=== PATIENT | male | born 1970 | race Hispanic/Latino ===

== ENCOUNTER 2018-04-28 16:47 | Observation (INO) | payer OTHER ==
--- OUTSIDE RECORDS SUMMARY | 2018-04-28 17:24 | XMS REPORT | Clinical Summary ---
:1970 Author Organization [facility] Address [address] [place] [address] Care Team Providers Name Role Phone Asked, No Pcp Primary Care Provider Unavailable Allergies No Known Allergies Current Medications Prescription Sig. Disp. Refills Start Date End Date Status topiramate TAKE 1 TABLET 270 tablet 1 02/25/2018 Active (TOPAMAX) 100 MG BY MOUTH tablet EVERY MORNING AND TAKE 2 TABLETS BY MOUTH EVERY NIGHT AT BEDTIME topiramate Take 3 270 tablet 1 04/12/2017 06/23/2017 Discontinued (TOPAMAX) 100 MG tablets (300 tablet mg total) by mouth daily for 180 days. 100 mg po qam and 200 mg po qhs. topiramate Take 3 270 tablet 0 06/25/2017 09/11/2017 Discontinued (TOPAMAX) 100 MG tablets (300 tablet mg total) by mouth daily for 90 days. 100 mg po qam and 200 mg po qhs topiramate Take 3 270 tablet 0 09/11/2017 02/23/2018 Discontinued (TOPAMAX) 100 MG tablets (300 tablet mg total) by mouth daily for 90 days. 100 mg po qam and 200 mg po qhs Active Problems Not on file Encounters Date Type Specialty Care Team Description 02/23/2018 Refill Neurology Ilya Ramon MD 09/11/2017 Office Visit Neurology Ilya Ramon MD Convulsions, unspecified convulsion type (Primary Dx) 06/23/2017 Refill Neurology Ilya Ramon MD after 04/27/2017 Family History Medical History Relation Name Comments Diabetes Father No Known Problems Mother Relation Name Status Comments Father Mother Social History Tobacco Use Types Packs/Day Years Used Date Never Smoker Smokeless Tobacco: Never Used Alcohol Use Drinks/Week oz/Week Comments No Sex Assigned at Date Recorded Not on file Last Filed Vital Signs Vital Sign Reading Time Taken Blood Pressure 142/74 09/11/2017 3:44 PM CDT Pulse 76 09/11/2017 3:44 PM CDT Temperature - - Respiratory Rate - - Oxygen Saturation - - Inhaled Oxygen Concentration - - Weight 121 kg (267 lb 4.8 oz) 09/11/2017 3:44 PM CDT Height 177.8 cm (5' 10") 09/11/2017 3:44 PM CDT Body Mass Index 38.35 09/11/2017 3:44 PM CDT Plan of Treatment Date Type Specialty Care Team Description 09/11/2018 Office Visit Neurology Ilya Ramon MD [address] [facility] [address] [place] [address] Health Maintenance Due Date Last Done Comments INFLUENZA VACCINE 01/22/2018 Results Not on fileafter 04/27/2017 Insurance Payer Benefit Plan / Group Subscriber ID Type Phone Address BCBS BCBS CHOICE PPO/FEDERAL EMPL PPO xxxxxxxxxxxx PPO Home: [place] [facility] [phone] [place] [phone]
[2018-04-28] MEDS ORDERED: ACETAMINOPHEN 500 MG TAB PO PRN (17:32)
[2018-04-28] MEDS ORDERED: TRAMADOL HCL 50 MG TAB PO PRN (17:34)
[2018-04-28] MEDS ORDERED: HYDRALAZINE HCL 20 MG/ML VIAL IV PRN (17:54)
--- NOTE | 2018-04-28 17:54 | P.HP ---
Certification for Inpatient Patient admitted to: Observation With expected LOS: <2 Midnights Patient will require the following post-hospital care: None Practitioner: I am a practitioner with admitting privileges, knowledge of patient current condition, hospital course, and medical plan of care. Services: Services provided to patient in accordance with Admission requirements found in Title 42 Section 412.3 of the Code of Federal Regulations Patient History Date of Service: 04/28/18 Primary Care Provider: Ashley Hunt; Urology-Dr. Garcia; Neurology-Dr. Navarrete Reason for admission: Left flank pain History of Present Illness: 48-year-old male presented to the hospital as a direct admission. Patient presents with left flank pain. It started last night. Pain comes in waves. He rates the pain 10/10 at times. Currently around 6/10. He reports some nausea and no vomiting. Denies any significant fever. No hematuria noted. Patient was seen earlier in the day by urology. Urology ordered x-ray showing left renal stone. Urology recommended the patient to be admitted for intervention tomorrow. Patient with history of kidney stones, seizure disorder and borderline hypertension. He has had lithotripsy done in the past. Patient denies any smoking or alcohol. When I saw the patient in the room he reporting pain. He appears stable. Patient does not have any respiratory distress. Allergies phenytoin sodium [From Dilantin] Allergy (Intermediate, Verified 05/23/12 06:28) Rash phenytoin sodium extended [From Dilantin] Allergy (Intermediate, Verified 06:28) Rash Home medications list reviewed: Yes - Past Medical/Surgical History Diabetic: No -: Seizure disorder -: Borderline hypertension -: Nephrolithiasis -: Lithotripsy -: Back surgery Psychosocial/ Personal History: The patient is . He has 1 child. He is a commercial electrician. - Family History Father -: Diabetes - Social History Smoking Status: Never smoker Alcohol use: No CD- Drugs: No Caffeine use: Yes Place of Residence: Home Review of Systems General: As per HPI Eyes: Unremarkable ENT: Unremarkable Respiratory: Unremarkable Cardiovascular: Unremarkable Gastrointestinal: Nausea, Abdominal Pain, As per HPI Genitourinary: As per HPI Musculoskeletal: Back Pain, As per HPI Integumentary: Unremarkable Neurological: Unremarkable Lymphatics: Unremarkable Physical Examination - Physical Exam General: Alert, In no apparent distress, Oriented x3, Cooperative HEENT: Atraumatic, Normocephalic, PERRLA, Mucous membr. moist/pink Neck: Supple, No Thyromegaly Respiratory: Clear to auscultation bilaterally, Normal air movement Cardiovascular: Normal pulses, Regular rate/rhythm Gastrointestinal: Normal bowel sounds, Soft and benign, Non-distended, No masses , No rebound, No guarding, Tenderness (Left flank pain noted) Musculoskeletal: No contractures, No erythema, No tenderness, No warmth Integumentary: No tenderness/swelling, No erythema, No warmth, No cyanosis Neurological: Normal speech, Normal strength at 5/5 x4 extr, Normal tone, Normal affect Assessment and Plan - Plan Impression: Left flank pain, nausea secondary to left nephrolithiasis with history of nephrolithiasis Seizure disorder History of borderline hypertension Plan: Left flank pain, nausea secondary to left nephrolithiasis with history of nephrolithiasis: Patient was a direct admit from neurology. Patient will be provided medication for pain. Will obtain CBC, BMP and urinalysis. Will start Flomax. Patient will remain NPO after midnight. Cystoscopy with possible further urological intervention planned for tomorrow. Await further recommendations from urology. Seizure disorder: Will resume home medication of Topamax 100 mg every a.m. and 200 mg every bedtime. Patient is seen by neurology in [place]. History of borderline hypertension: Patient reports history of hypertension. Will monitor this closely. Will provide medication as needed for elevated blood pressure Discharge Plan: Home Plan to discharge in: 24 Hours - Advance Directives Does patient have a Living Will: No Does patient have a Durable POA for Healthcare: No - Code Status/Comfort Care Code Status Assessed: Yes (Patient is full code.) Time Spent Managing Pts Care (In Minutes): 55
[2018-04-28 18:18] LABS: Absolute Lymphocytes (CBC) 1.6 K/uL (0.7-4.9); Absolute Neutrophil 9.1 K/uL (1.8-8.0); Basophils % 0.5 % (0-1.3); Eosinophils % 1.3 % (0-4.4); Hematocrit 43.4 % (39.6-49.0); Lymphocytes % 13.7 % (15.3-44.8); MCH 29.1 pg (27.0-35.0); MCV 84.6 fL (80-100); MPV 9.7 fL (7.6-11.3); Monocytes % 8.1 % (3.3-12.3); RBC Red Blood Cell Count 5.13 M/uL (4.33-5.43)
[2018-04-28] MEDS: D5LR 1,000 ML IV SCH (18:18)
[2018-04-28] MEDS: MORPHINE 2 MG/ML SYR IV PRN (18:19)
[2018-04-28 18:36] LABS: Albumin 3.9 g/dL (3.4-5.0); Bilirubin Total 0.4 mg/dL (0.2-1.0); Magnesium 2.1 mg/dL (1.8-2.4)
[2018-04-28 19:14] LABS: Protime INR 1.07
[2018-04-28] MEDS: HYDROCODONE/APAP 7.5/325 MG TAB PO PRN (19:58)
[2018-04-28 20:04] VITALS: BMI 35.2
[2018-04-28 20:09] LABS: Urine Appearance CLEAR; Urine Bilirubin NEGATIVE (NEG); Urine Blood 1+ (NEG); Urine Color YELLOW; Urine Glucose NEGATIVE (NEG); Urine Protein NEGATIVE (NEG); Urine pH 6.5 (5.0-7.0)
[2018-04-28 20:15] LABS: Urine Microscopic Reflex ORDER UMIC
[2018-04-28] MEDS: ONDANSETRON 4 MG/2 ML VIAL IV PRN (20:26)
[2018-04-28 20:29] LABS: Urine Bacteria <20 /HPF (NONE SEEN); Urine Culture Reflex Order NOT NEEDED; Urine Mucus 1+ /HPF (NONE SEEN)
[2018-04-28] MEDS ORDERED: TOPIRAMATE 100 MG TAB PO SCH (21:00)
[2018-04-28] MEDS ORDERED: TAMSULOSIN 0.4 MG SR CAP PO SCH (21:00)
[2018-04-29] MEDS: MORPHINE 2 MG/ML SYR IV PRN ×2 (00:16→05:58)
[2018-04-29] MEDS: HYDROCODONE/APAP 7.5/325 MG TAB PO PRN (04:28)
[2018-04-29] MEDS: D5LR 1,000 ML IV SCH (04:29)
[2018-04-29] MEDS: ONDANSETRON 4 MG/2 ML VIAL IV PRN (06:02)
[2018-04-29] MEDS ORDERED: PANTOPRAZOLE 40MG TABLET PO SCH (06:30)
[2018-04-29] MEDS ORDERED: TOPIRAMATE 100 MG TAB PO SCH (09:00)
[2018-04-29] MEDS ORDERED: LIDOCAINE 2% MPF 5 ML VIAL ONE (12:29)
[2018-04-29] MEDS ORDERED: FENTANYL CITR 100 MCG/2 ML ONE (12:29)
[2018-04-29] MEDS ORDERED: MIDAZOLAM HCL 2 MG/2 ML INJ ONE (12:29)
[2018-04-29] MEDS ORDERED: PROPOFOL 200 MG/20 ML VIAL IV ONE (12:29)
[2018-04-29] MEDS ORDERED: Ringers Lactate 1,000 ML IV ONE (12:34)
[2018-04-29] MEDS ORDERED: GENTAMICIN 100 MG/100 ML BAG 100 MG/100 ML BAG IV ONE (12:39)
--- NOTE | 2018-04-29 13:37 | P.DS ---
Admission Date: 04/28/18 Discharge Date: 04/29/18 Primary Care Provider: Ashley Hunt; Urology-Dr. Garcia; Neurology-Dr. Navarrete Disposition: ROUTINE DISCHARGE Discharge Condition: GOOD Reason for Admission: Left flank pain Consultations: Urology-Dr. Garcia Procedures: KUB: Calcification to the left pole Urology: Cystoscopy, ureteroscopy, extra corporal shockwave lithotripsy Medical problem list: Left flank pain, nausea secondary to left nephrolithiasis with renal insufficiency with history of nephrolithiasis status post cystoscopy, ureteroscopy, extra corporal shockwave lithotripsy Seizure disorder Hypertension Brief History of Present Illness: 48-year-old male presented to the hospital as a direct admission. Patient presents with left flank pain. It started last night. Pain comes in waves. He rates the pain 10/10 at times. Currently around 6/10. He reports some nausea and no vomiting. Denies any significant fever. No hematuria noted. Patient was seen earlier in the day by urology. Urology ordered x-ray showing left renal stone. Urology recommended the patient to be admitted for intervention tomorrow. Patient with history of kidney stones, seizure disorder and borderline hypertension. He has had lithotripsy done in the past. Patient denies any smoking or alcohol. When I saw the patient in the room he reporting pain. He appears stable. Patient does not have any respiratory distress. Hospital Course: Patient presented with left flank pain, nausea secondary to left nephrolithiasis with renal insufficiency. Patient with history of nephrolithiasis. Patient seen by Urology. Cystoscopy, ureteroscopy, extra corporal shock wave lithotripsy done. Patient tolerated procedure well. At discharge patient will follow up with urology in 1 week to follow up this hospitalization. Patient given medication by urology for pain. At discharge, he will continue with Flomax 0.4 mg daily. Recommendation to recheck lab-BMP in 1 week to monitor his progress. Patient has seizure disorder. Patient will resume his home medication of Topamax 100 mg every a.m. and 200 mg every bedtime. Patient will follow up with neurology as directed. Patient with hypertension. Recommendation to maintain blood pressures less 150/ 80. Further adjustment can be done by his PCP. Patient may continue with his medication-Norvasc 5 mg daily. Vital Signs/Physical Exam: Temp Pulse Resp BP Pulse Ox 97.3 F 65 18 138/83 97 04/29/18 12:00 04/29/18 12:00 04/29/18 12:00 04/29/18 12:00 04/29/18 12:00 General: Alert, In no apparent distress, Oriented x3, Cooperative HEENT: Atraumatic Neck: Supple Respiratory: Clear to auscultation bilaterally, Normal air movement Cardiovascular: Normal pulses, Regular rate/rhythm Gastrointestinal: Normal bowel sounds, Soft and benign, Non-distended, No tenderness, No masses, No rebound, No guarding Musculoskeletal: No erythema, No tenderness, No warmth Integumentary: No tenderness/swelling, No erythema, No warmth, No cyanosis Neurological: Normal speech, Normal strength at 5/5 x4 extr, Normal tone, Normal affect Laboratory Data at Discharge: WBC 12.0 K/uL (4.3-10.9) H 04/28/18 17:58 Hgb 14.9 g/dL (13.6-17.9) 04/28/18 17:58 Hct 43.4 % (39.6-49.0) 04/28/18 17:58 Plt Count 153 K/uL (152-406) 04/28/18 17:58 PT 12.6 SECONDS (9.5-12.5) H 04/28/18 17:58 INR 1.07 04/28/18 17:58 APTT 32.0 SECONDS (24.3-36.9) 04/28/18 17:58 Sodium 142 mmol/L (136-145) 04/28/18 17:58 Potassium 4.0 mmol/L (3.5-5.1) 04/28/18 17:58 BUN 19 mg/dL (7-18) H 04/28/18 17:58 Creatinine 1.70 mg/dL (0.55-1.3) H 04/28/18 17:58 Glucose 109 mg/dL (74-106) H 04/28/18 17:58 Magnesium 2.1 mg/dL (1.8-2.4) 04/28/18 17:58 Total Bilirubin 0.4 mg/dL (0.2-1.0) 04/28/18 17:58 AST 13 U/L (15-37) L 11/05/18 17:58 ALT 30 U/L (12-78) 04/28/18 17:58 Alkaline Phosphatase 73 U/L (45-117) 04/28/18 17:58 Home Medications: Amlodipine Besylate 5 mg PO DAILY 04/28/18 Topiramate 100 mg PO DAILY 04/28/18 Topiramate 200 mg PO BEDTIME 04/28/18 Tamsulosin [Flomax*] 0.4 mg PO BEDTIME #30 cap 04/29/18 New Medications: Tamsulosin [Flomax*] 0.4 mg PO BEDTIME #30 cap Patient Discharge Instructions: 1. Patient will need to follow up with his PCP in 1 week to follow up this hospitalization. 2. Patient presented with left flank pain, nausea secondary to left nephrolithiasis with renal insufficiency. Patient with history of nephrolithiasis. Patient seen by Urology. Cystoscopy, ureteroscopy, extra corporal shock wave lithotripsy done. Patient tolerated procedure well. At discharge patient will follow up with urology in 1 week to follow up this hospitalization. Patient given medication by urology for pain. At discharge, he will continue with Flomax 0.4 mg daily. Recommendation to recheck lab-BMP in 1 week to monitor his progress. 3. Patient has seizure disorder. Patient will resume his home medication of Topamax 100 mg every a.m. and 200 mg every bedtime. Patient will follow up with neurology as directed. 4. Patient with hypertension. Recommendation to maintain blood pressures less 150/80. Further adjustment can be done by his PCP. Patient may continue with his medication-Norvasc 5 mg daily. Diet: AHA Activity: Ad chidi Followup: Leopoldo Garcia MD [ACTIVE - CAN ADMIT] - Time spent managing pt's care (in minutes): 55
[2018-04-29 15:50] VITALS: O2SAT 97
[2018-04-29 16:11] VITALS: BP 131/73; TEMP 97.1
[2018-04-30] MEDS ORDERED: AMLODIPINE 5 MG TAB PO SCH (09:00)
== END 2018-04-29 17:28 | disposition home or self-care (01) ==
LOC: 4TH 17:21
PROVIDERS: ADMIT Family Medicine; ATTEND Family Medicine
PROC: 0TF4XZZ Fragmentation in Left Kidney Pelvis, External Approach (ICD-10-PCS; principal; 2018-04-29 13:30)
DX: N20.0 Calculus of kidney (principal); G40.909 Epilepsy, unspecified, not intractable, without status epilepticus; R03.0 Elevated blood-pressure reading, without diagnosis of hypertension; Z87.442 Personal history of urinary calculi
CPT/HCPCS: 36415; 50590; 80053; 81001; 81003; 81015; 83735; 85025; 85610; 85730; G0378; J1580; J2250; J2270; J2405; J2704; J3010

== ENCOUNTER 2018-05-02 14:05 | Emergency (ER) | payer OTHER ==
--- OUTSIDE RECORDS SUMMARY | 2018-05-02 14:08 | XMS REPORT | Clinical Summary ---
:1970 Author Organization [facility] Address [address] [place] [address] Care Team Providers Name Role Phone Asked, [...] Ilya Ramon MD 09/11/2017 Office Visit Neurology Iyla Ramon MD Convulsions, unspecified convulsion type (Primary Dx) 06/23/2017 Refill Neurology Ilya Ramon MD after 05/01/2017 Family History Medical History Relation Name Comments [...] 09/11/2018 Office Visit Neurology Ilya Ramon MD [address] [facility] [address] [place] [address] Health Maintenance Due Date Last Done Comments INFLUENZA VACCINE 01/22/2018 Results Not on fileafter 05/01/2017 Insurance Payer Benefit Plan / Group Subscriber ID Type Phone Address BCBS BCBS CHOICE PPO/FEDERAL EMPL PPO xxxxxxxxxxxx PPO Home: [address] [facility] [phone] [place] [phone]
[2018-05-02] MEDS ORDERED: ASPIRIN 81 MG CHEWABLE TABLET ONE (17:35)
[2018-05-02 18:33] LABS: Protime INR 1.03
[2018-05-02 18:35] LABS: Absolute Lymphocytes (CBC) 2.3 K/uL (0.7-4.9); Absolute Monocytes 0.7 K/uL (0.1-1.3); Absolute Neutrophil 5.2 K/uL (1.8-8.0); Basophils % 0.8 % (0-1.3); Eosinophils % 2.3 % (0-4.4); Hematocrit 47.7 % (39.6-49.0); Lymphocytes % 27.4 % (15.3-44.8); MCH 28.8 pg (27.0-35.0); MCV 86.7 fL (80-100); MPV 9.5 fL (7.6-11.3)
--- NOTE | 2018-05-02 18:46 | EKG ---
Test Date: 2018-05-02 Test Time: 14:41:07 Hat Band Attacher: ELMER MEASUREMENT RESULTS: Intervals: Rate: 58 NC: 158 QRSD: 98 QT: 434 QTc: 426 [place]: P: 45 NC: 158 QRS: 44 T: 45 INTERPRETIVE STATEMENTS: Sinus bradycardia Otherwise normal ECG No previous ECG available for comparison Electronically Signed On 05-02-18 18:44:45 PROCESS AUTOMATION ENGINEER by Migue Hargrove
[2018-05-02 18:54] LABS: ALT/SGPT 30 U/L (12-78); AST/SGOT 13 U/L (15-37); Albumin 4.1 g/dL (3.4-5.0); Alkaline Phosphatase 70 U/L (45-117); BUN Blood Urea Nitrogen 14 mg/dL (7-18); Bicarbonate 25 mmol/L (21-32); Bilirubin Direct 0.1 mg/dL (0-0.2); Bilirubin Total 0.4 mg/dL (0.2-1.0); Glucose Level 88 mg/dL (74-106); NT PRO-BNP 103 pg/mL (<125); Potassium 3.6 mmol/L (3.5-5.1); Protein, Total 7.8 g/dL (6.4-8.2); Sodium Level 143 mmol/L (136-145); Troponin (Emerg Dept Use Only) < 0.02 ng/mL (0.0-0.045)
--- NOTE | 2018-05-02 19:22 | EDPHYS ---
Physician Documentation [facility] Name: Berto Henley Age: 48 yrs Sex: Male : 1970 Arrival Date: 05/02/2018 Time: 14:09 Bed 23 Private MD: None, None ED Physician Dar Francois HPI: 05/02 17:10 This 48 yrs old Male presents to ER via Ambulatory with complaints of Arm cp Pain, Shoulder Pain. 17:10 The patient or guardian complains of pain, that is acute. The complaints affect the cp left arm. Onset: The symptoms/episode began/occurred 2 day(s) ago. 17:10 Context: Patient reports having IV to placed in left arm 2 days ago while in hospital cp for kidney stone. Pain to left arm started after discharge from hospital. Patient denies injury. Historical: - Allergies: 14:29 Dilantin; aj - Home Meds: 14:29 Topamax Oral [Active]; alfuzosin 10 mg oral Tb24 1 tab once daily [Active]; amlodipine aj oral [Active]; - PMHx: 14:29 Hypertension; Seizures; Prostate Issues; Kidney stones; aj - PSHx: 14:29 Lithotripsy; aj - Immunization history:: Adult Immunizations up to date. - Social history:: Smoking status: Patient/guardian denies using tobacco. - Ebola Screening: : Patient negative for fever greater than or equal to 101.5 degrees Fahrenheit, and additional compatible Ebola Virus Disease symptoms Patient denies exposure to infectious person Patient denies travel to an Ebola-affected area in the 21 days before illness onset No symptoms or risks identified at this time. ROS: 17:13 Constitutional: Negative for body aches, chills, poor PO intake. cp 17:13 Eyes: Negative for injury, pain, redness, and discharge. cp 17:13 ENT: Negative for drainage from ear(s), ear pain, sore throat, difficulty swallowing, difficulty handling secretions. 17:13 Cardiovascular: Positive for left upper chest pain, Negative for edema, palpitations. 17:13 Respiratory: Negative for cough, shortness of breath, wheezing. 17:13 Abdomen/GI: Negative for abdominal pain, nausea, vomiting, and diarrhea, constipation, anorexia, black/tarry stool, rectal bleeding. 17:13 Back: Negative for pain at rest, pain with movement, radiated pain. 17:13 : Negative for urinary symptoms, flank pain. 17:13 MS/extremity: Positive for pain, tenderness, of the left arm, Negative for injury or acute deformity, decreased range of motion, paresthesias, tingling, warmth. 17:13 Skin: Negative for cellulitis, diaphoresis, rash. 17:13 Neuro: Negative for altered mental status, dizziness, headache, syncope, near syncope, weakness. 17:13 All other systems are negative. Exam: 17:15 ECG was reviewed by the Attending Physician. cp 17:20 Constitutional: The patient appears in no acute distress, alert, awake, cp non-diaphoretic, non-toxic, well developed, well nourished. 17:20 Head/Face: Normocephalic, atraumatic. Eyes: Pupils equal round and reactive to light, cp extra-ocular motions intact. Lids and lashes normal. Conjunctiva and sclera are non-icteric and not injected. Cornea within normal limits. Periorbital areas with no swelling, redness, or edema. ENT: Nares patent. No nasal discharge, no septal abnormalities noted. Tympanic membranes are normal and external auditory canals are clear. Oropharynx with no redness, swelling, or masses, exudates, or evidence of obstruction, uvula midline. Mucous membranes moist. Neck: Trachea midline, no thyromegaly or masses palpated, and no cervical lymphadenopathy. Supple, full range of motion without nuchal rigidity, or vertebral point tenderness. No Meningismus. Chest/axilla: Normal chest wall appearance and motion. Nontender with no deformity. No lesions are appreciated. 17:20 Cardiovascular: Rate: bradycardic, Rhythm: regular, Pulses: Pulses are 2+ in right radial artery and left radial artery. Heart sounds: murmur, not appreciated, rub, not appreciated, gallop, not appreciated, Edema: is not appreciated, JVD: is not appreciated. 17:20 Respiratory: the patient does not display signs of respiratory distress, Respirations: normal, no use of accessory muscles, no retractions, no splinting, no tachypnea, labored breathing, is not present, Breath sounds: are clear throughout, no decreased breath sounds, no stridor, no wheezing. 17:20 Abdomen/GI: Inspection: abdomen appears normal, Bowel sounds: active, all quadrants, Palpation: abdomen is soft and non-tender, in all quadrants, rebound tenderness, is not appreciated, involuntary guarding, is not appreciated. 17:20 Back: pain, is absent, ROM is normal. 17:20 Musculoskeletal/extremity: Extremities: grossly normal except: noted in the volar side left proximal forearm: tenderness, There is no evidence of ecchymosis, erythema, rash, ROM: full active range of motion, in the left arm, Perfusion: the extremity is normally perfused throughout, Sensation intact. 17:20 Skin: cellulitis, is not appreciated, no rash present. 17:20 Neuro: Orientation: to person, place \T\ time. Mentation: is normal, Cerebellar function: is grossly normal, Motor: moves all fours, strength is normal. Vital Signs: 14:29 BP 136 / 89; Pulse 74; Resp 20; Temp 97.6; Pulse Ox 99% on R/A; Weight 114.76 kg; aj Height 5 ft. 10 in. (177.80 cm); 14:45 BP 123 / 85; Pulse 53; Resp 18; Pulse Ox 97% ; tl3 17:00 BP 144 / 90; Pulse 53; Resp 18; Pulse Ox 100% ; tl3 14:29 Body Mass Index 36.30 (114.76 kg, 177.80 cm) aj MDM: 16:53 Patient medically screened. cp 18:00 Differential diagnosis: cellulitis, DVT, angina, strain, tendonitis, phlebitis. cp 19:20 Data reviewed: vital signs, nurses notes, lab test result(s), EKG, radiologic studies, cp plain films. 19:20 Test interpretation: by ED physician or midlevel provider: ECG, plain radiologic cp studies. Counseling: I had a detailed discussion with the patient and/or guardian regarding: the historical points, exam findings, and any diagnostic results supporting the discharge/admit diagnosis, lab results, radiology results, to return to the emergency department if symptoms worsen or persist or if there are any questions or concerns that arise at home. Response to treatment: the patient's symptoms have markedly improved after treatment, VSS. EKG, labs, and radiology studies negative for acute findings. Will discharge to home for continued monitoring. 05/02 17:07 Order name: Basic Metabolic Panel; Complete Time: 19:16 cp 05/02 19:17 Interpretation: Normal except: CL 111; GFR 80. 05/02 17:07 Order name: CBC with Diff; Complete Time: 19:16 05/02 19:17 Interpretation: Normal except: WBC 8.4; RBC 5.50. 05/02 17:07 Order name: LFT's; Complete Time: 19:16 cp 05/02 19:17 Interpretation: Normal except: AST 13; GLOB 3.7. 05/02 17:07 Order name: Magnesium; Complete Time: 19:16 cp 05/02 17:07 Order name: NT PRO-BNP; Complete Time: 19:16 cp 05/02 19:17 Interpretation: Within normal limits: NT PRO-BNP 103. 05/02 17:07 Order name: PT-INR; Complete Time: 19:16 05/02 17:07 Order name: Troponin (emerg Dept Use Only); Complete Time: 19:16 05/02 19:17 Interpretation: TROPED < 0.02; Reviewed. 05/02 17:07 Order name: XRAY Chest (1 view) 05/02 17:07 Order name: EKG; Complete Time: 17:08 05/02 17:07 Order name: Cardiac monitoring; Complete Time: 17:53 05/02 17:07 Order name: EKG - Nurse/Tech; Complete Time: 17:53 05/02 17:07 Order name: IV Saline Lock; Complete Time: 17:53 cp 05/02 17:07 Order name: US Extremity Venous Unilateral Ltd 05/02 17:07 Order name: Labs collected and sent; Complete Time: 17:53 05/02 17:07 Order name: O2 Per Protocol; Complete Time: 17:26 05/02 17:07 Order name: O2 Sat Monitoring; Complete Time: 17:26 cp EC:15 Rate is 58 beats/min. Rhythm is regular. OK interval is normal. QRS interval is normal. cp QT interval is normal. Interpreted by me. Reviewed by me. Administered Medications: 17:30 Drug: Aspirin Chewable Tablet 324 mg Route: PO; tl3 19:56 Follow up: Response: No adverse reaction tl3 Disposition: 05/02/18 19:22 Discharged to Home. Impression: Pain in left arm. - Condition is Stable. - Discharge Instructions: Musculoskeletal Pain, Phlebitis, [id number]. - Prescriptions for Anaprox DS 550 mg Oral Tablet - take 1 tablet by ORAL route every 12 hours As needed; 20 tablet. Cyclobenzaprine 10 mg Oral Tablet - take 1 tablet by ORAL route every 8 hours As needed; 20 tablet. - Medication Reconciliation Form, Thank You Letter, Antibiotic Education, Prescription Opioid Use form. - Follow up: Private Physician; When: 2 - 3 days; Reason: Recheck today's complaints. - Problem is new. - Symptoms have improved. Addendum: 05/05/2018 09:38 Co-signature as Attending Physician, Dar Francois MD I agree with the assessment and c villegas plan of care. Signatures: Dispatcher [employer] EDKareen Alejandro, RN RN Dar Khoury MD MD cha Page, Corey, PA PA cp Lowrey, Tammy, RN RN tl3 Corrections: (The following items were deleted from the chart) 05/02 19:58 19:22 05/02/2018 19:22 Discharged to Home. Impression: Pain in left arm. Condition is tl3 Stable. Forms are Medication Reconciliation Form, Thank You Letter, Antibiotic Education, Prescription Opioid Use. Follow up: Private Physician; When: 2 - 3 days; Reason: Recheck today's complaints. Problem is new. Symptoms have improved. cp
--- NOTE | 2018-05-02 19:22 | ER ---
Nurse's Notes [facility] Name: Berto Henley Age: 48 yrs Sex: Male : 1970 Arrival Date: 05/02/2018 Time: 14:09 Bed 23 Private MD: None, None Diagnosis: Pain in left arm Presentation: 05/02 14:25 Presenting complaint: Patient states: Left arm pain that started Saturday night. aj Patient had lithotripsy on Saturday and reports IV site infiltration to left forearm. Patient reports pain at side. Denies N/V SOB or diaphoresis. Transition of care: patient was not received from another setting of care. Onset of symptoms was April 30, 2018. Risk Assessment: Do you want to hurt yourself or someone else? Patient reports no desire to harm self or others. Initial Sepsis Screen: Does the patient meet any 2 criteria? No. Patient's initial sepsis screen is negative. Does the patient have a suspected source of infection? No. Patient's initial sepsis screen is negative. Care prior to arrival: None. 14:25 Method Of Arrival: Ambulatory 14:25 Acuity: TRISH 3 Triage Assessment: 14:29 General: Appears in no apparent distress. comfortable, Behavior is calm, cooperative, aj appropriate for age. Pain: Complains of pain in left arm. Neuro: Level of Consciousness is awake, alert, obeys commands, Oriented to person, place, time, situation, Appropriate for age. Cardiovascular: Denies diaphoresis, fatigue, lightheadedness, nausea, palpitations, shortness of breath, syncope, vomiting. Respiratory: Airway is patent Respiratory effort is even, unlabored, Respiratory pattern is regular, symmetrical. Derm: Skin is intact, is healthy with good turgor, Skin is pink, warm \T\ dry. normal, Bruising that is brown, on dorsal aspect of left forearm. Musculoskeletal: Reports pain in left arm. Historical: - Allergies: 14:29 Dilantin; aj - Home Meds: 14:29 Topamax Oral [Active]; alfuzosin 10 mg oral Tb24 1 tab once daily [Active]; amlodipine aj oral [Active]; - PMHx: 14:29 Hypertension; Seizures; Prostate Issues; Kidney stones; aj - PSHx: 14:29 Lithotripsy; aj - Immunization history:: Adult Immunizations up to date. - Social history:: Smoking status: Patient/guardian denies using tobacco. - Ebola Screening: : Patient negative for fever greater than or equal to 101.5 degrees Fahrenheit, and additional compatible Ebola Virus Disease symptoms Patient denies exposure to infectious person Patient denies travel to an Ebola-affected area in the 21 days before illness onset No symptoms or risks identified at this time. Screenin:00 Abuse screen: Denies threats or abuse. Nutritional screening: No deficits noted. tl3 Tuberculosis screening: No symptoms or risk factors identified. Fall Risk None identified. Assessment: 14:45 General: Appears uncomfortable, well groomed, well developed, well nourished. Pain: tl3 Complains of pain in dorsal aspect of left forearm and left arm. Neuro: Level of Consciousness is awake, alert, obeys commands, Oriented to person, place, time, situation, Appropriate for age. Cardiovascular: Patient's skin is warm and dry. Respiratory: Airway is patent Respiratory effort is even, unlabored, Respiratory pattern is regular, symmetrical. GI: No signs and/or symptoms were reported involving the gastrointestinal system. : No signs and/or symptoms were reported regarding the genitourinary system. EENT: No signs and/or symptoms were reported regarding the EENT system. Derm: No signs and/or symptoms reported regarding the dermatologic system. 17:00 Reassessment: No changes from previously documented assessment. Patient and/or family tl3 updated on plan of care and expected duration. Pain level reassessed. Patient is alert, oriented x 3, equal unlabored respirations, skin warm/dry/pink. Vital Signs: 14:29 BP 136 / 89; Pulse 74; Resp 20; Temp 97.6; Pulse Ox 99% on R/A; Weight 114.76 kg; aj Height 5 ft. 10 in. (177.80 cm); 14:45 BP 123 / 85; Pulse 53; Resp 18; Pulse Ox 97% ; tl3 17:00 BP 144 / 90; Pulse 53; Resp 18; Pulse Ox 100% ; tl3 14:29 Body Mass Index 36.30 (114.76 kg, 177.80 cm) aj ED Course: 14:09 Patient arrived in ED. mr 14:09 None, None is Private Physician. mr 14:27 Triage completed. aj 14:29 Arm band placed on right wrist. Patient placed in waiting room, Patient notified of wait time. 15:10 EKG done, by mineral surveying technician. reviewed by Dar Francois MD. 3 16:53 Dar Watkins PA is PHCP. cp 16:53 Dar Francois MD is Attending Physician. cp 17:00 Patient has correct armband on for positive identification. tl3 17:00 No provider procedures requiring assistance completed. tl3 17:00 IV discontinued, intact, bleeding controlled, No redness/swelling at site. Pressure tl3 dressing applied. 17:25 Frances Cortes, RN is Primary Nurse. tl3 17:41 XRAY Chest (1 view) In Process Unspecified. EDMS 18:00 US Extremity Venous Unilateral Ltd Sent. tl3 18:18 Initial lab(s) drawn, by me, sent to lab. Inserted saline lock: 20 gauge in right dh3 antecubital area, using aseptic technique. Blood collected. 18:31 Ultrasound completed. Patient tolerated well. sg3 18:49 US Extremity Venous Unilateral Ltd In Process Unspecified. EDMS Administered Medications: 17:30 Drug: Aspirin Chewable Tablet 324 mg Route: PO; tl3 19:56 Follow up: Response: No adverse reaction tl3 Outcome: 17:00 Discharged to home ambulatory. tl3 17:00 Condition: stable 17:00 Discharge instructions given to patient, Instructed on discharge instructions, follow up and referral plans. Demonstrated understanding of instructions, follow-up care, medications, Prescriptions given X 2. 19:22 Discharge ordered by . cp 19:58 Patient left the ED. tl3 Signatures: Dispatcher [employer] EDMS Kareen Lou, RN Breanna Mendieta mr Dar Watkins PA PA cp Herrera, Deanna 3 Jessica Hogan 3 Frances Cortes, RN RN 3 Rosmery Vasquez 3
--- NOTE | 2018-05-02 19:56 | RAD REPORT ---
EXAM DESCRIPTION: RAD - Chest Single View - 05/02/2018 5:41 pm CLINICAL HISTORY: Left arm pain COMPARISON: April 28 TECHNIQUE: AP portable chest image was obtained 1729 hours . FINDINGS: Lungs are clear. Heart and vasculature are normal. No measurable pleural effusion and no p neumothorax. No acute bony abnormality seen. No acute aortic findings suspected. IMPRESSION: No acute cardiopulmonary process. No significant interval change.
--- NOTE | 2018-05-02 20:03 | RAD REPORT ---
EXAM DESCRIPTION: US - Extremity Venous Uni Ltd - 05/02/2018 6:47 pm CLINICAL HISTORY: Left arm pain and swelling COMPARISON: None. TECHNIQUE: Real-time sonographic evaluation of the left upper extremity deep venous systems was perf ormed. FINDINGS: Normal compressibility, flow augmentation, phasic flow and spontaneous flow are identified in the left upper extremity deep venous system. No intraluminal filling defects seen. Internal jugul ar and subclavian veins are normal as well. IMPRESSION: No DVT in the left upper extremity.
[2018-05-02 21:30] VITALS: TEMP 97.6
[2018-05-02 21:33] VITALS: BP 144/90; O2SAT 100
== END 2018-05-02 19:58 | disposition home or self-care (01) ==
LOC: ER 14:05
DX: M79.602 Pain in left arm (principal); I10 Essential (primary) hypertension; G40.909 Epilepsy, unspecified, not intractable, without status epilepticus; Z88.8 Allergy status to other drugs, medicaments and biological substances
CPT/HCPCS: 36415; 71045; 80048; 80076; 83735; 83880; 84484; 85025; 85610; 93005; 93971; 99284

== ENCOUNTER 2024-08-16 06:59 | Emergency (ER) | payer BC ==
[2024-08-16] MEDS ORDERED: ONDANSETRON 4 MG/2 ML VIAL ONE (07:13)
[2024-08-16] MEDS ORDERED: KETOROLAC 30 MG/ML INJ ONE (07:13)
[2024-08-16] MEDS ORDERED: NA CHLORIDE 0.9% 1,000 ML ONE (07:13)
[2024-08-16 07:27] LABS: Absolute Basophils 0.1 K/uL (0-0.5); Absolute Lymphocytes (CBC) 1.2 K/uL (0.7-4.9); Absolute Monocytes 0.5 K/uL (0.1-1.3); Absolute Neutrophil 11.1 K/uL (1.8-8.0); Basophils % 0.6 % (0-1.3); Eosinophils % 0.3 % (0-4.4); Hematocrit 49.2 % (39.6-49.0); Hemoglobin 15.9 g/dL (13.6-17.9); Lymphocytes % 9.6 % (15.3-44.8); MCH 27.6 pg (27.0-35.0); MCHC 32.3 g/dL (32.0-36.0); MCV 85.3 fL (80-100); MPV 9.1 fL (7.6-11.3); Neutrophils % 85.5 % (41.7-73.7); Nucleated Red Blood Cells % 0.2 % (0-0); Platelets 168 thou/uL (152-406); RBC Red Blood Cell Count 5.77 M/uL (4.33-5.43); Red Cell Distribution Width 14.6 % (12.1-15.2)
[2024-08-16 07:40] LABS: Albumin 3.6 g/dL (3.4-5.0); Albumin/Globulin Ratio 0.9 (1.1-1.8); Anion Gap 10.4 mEq/L (5.0-15.0); Bilirubin Total 0.3 mg/dL (0.2-1.0); Globulin 3.9 g/dL (2.3-3.5); Potassium 3.4 mEq/L (3.5-5.1); Protein, Total 7.5 g/dL (6.4-8.2)
--- NOTE | 2024-08-16 08:11 | RAD REPORT ---
EXAMINATION: Stone Protocol CLINICAL INDICATION: Abdominal pain. Left flank pain TECHNIQUE: CT abdomen and pelvis was performed, without IV contrast, as per department protocol. Oral contrast not given. Axial, sagittal and coronal reconstructions were obtained. One or more of the following dose reduction techniques were used: Automated exposure control, adjustment of the mA and k V according to the patient size, and iterative reconstruction. Unless otherwise specified, incidental findings do not require dedicated imaging follow-up. COMPARISON: 2013. FINDINGS: The lack of intravenous and oral contrast limits the sensitivity of this exam for evaluation of solid visceral organs, vascular structures, and bowel Multiple, bilateral renal calculi. Mild to moderate left hydronephrosis 5 mm calculus distal left ure ter. No right hydronephrosis Liver, spleen, pancreas and adrenals grossly normal No evidence of diverticulitis. Normal appendix Umbilical hernia repair.. 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 Puida-ss-vlacugcs left and small right inguinal hernias containing fat. Garcia rods united by pedicular screws have been placed L3-S1. Bone plugs are present. Lucencies involves large portions of L3, L4 and L5 vertebral bodies having the appearance of osteomyelitis is. The left screw protrudes through the cortex of the L5 vertebral body. Mild posterior subluxation L2 on L3. Mild compression deformity T10 vertebral body presumably chronic IMPRESSION: 5 mm calculus distal right ureter results in mild to moderate left hydronephrosis. Bilateral renal calculi Osteolysis L3, L4 and L5 vertebral bodies.
--- NOTE | 2024-08-16 08:25 | ER ---
Nurse's Notes [facility] Name: Berto Henley Age: 54 yrs Sex: Male : 1970 Arrival Date: 08/16/2024 Time: 06:59 Bed 8 Private MD: Diagnosis: Hydronephrosis with renal and ureteral calculous obstruction-5 mm distal right Presentation: 08/16 07:11 Chief complaint: Patient states: Left flank pain. Coronavirus screen: At this time, the [facility] client does not indicate any symptoms associated with coronavirus-19. Ebola Screen: No symptoms or risks identified at this time. Initial Sepsis Screen: Does the patient meet any 2 criteria? No. Patient's initial sepsis screen is negative. Does the patient have a suspected source of infection? No. Patient's initial sepsis screen is negative. Risk Assessment: Do you want to hurt yourself or someone else? Patient reports no desire to harm self or others. Onset of symptoms was August 16, 2024 at 02:00. 07:11 Method Of Arrival: Ambulatory [facility] 07:11 Acuity: TRISH 3 jl7 Triage Assessment: 07:15 General: Appears in no apparent distress. uncomfortable, Behavior is calm, cooperative, jl7 appropriate for age. Pain: Complains of pain in left flank Pain currently is 5 out of 10 on a pain scale. at worst was 8 out of 10 on a pain scale. Cardiovascular: Patient's skin is warm and dry. Respiratory: Airway is patent Respiratory effort is even, unlabored, Respiratory pattern is regular, symmetrical. GI: Abdomen is non-distended. Derm: Skin is pink, warm \T\ dry. Historical: - Allergies: 07:13 Dilantin; jl7 - PMHx: 07:13 Hypertension; Kidney stones; prostate issues; Seizures; jl7 - Immunization history:: Adult Immunizations unknown. - Infectious Disease History:: Denies. - Social history:: Smoking status: Patient denies any tobacco usage or history of. Screenin:15 [facility] ED Fall Risk Assessment (Adult) History of falling in the last 3 months, jl7 including since admission No falls in past 3 months (0 pts) Confusion or Disorientation No (0 pts) Intoxicated or Sedated No (0 pts) Impaired Gait No (0 pts) Mobility Assist Device Used No (0 pt) Altered Elimination No (0 pt) Score/Fall Risk Level 0 - 2 = Low Risk Oriented to surroundings, Maintained a safe environment. Abuse screen: Denies threats or abuse. Denies injuries from another. Nutritional screening: No deficits noted. Tuberculosis screening: No symptoms or risk factors identified. Assessment: 08:00 Reassessment: Patient appears in no apparent distress at this time. Patient and/or jl7 family updated on plan of care and expected duration. Pain level reassessed. Patient is alert, oriented x 3, equal unlabored respirations, skin warm/dry/pink. Vital Signs: 07:11 BP 160 / 91; Pulse 77; Resp 15; Temp 98.1; Pulse Ox 96% ; Weight 123.83 kg; Height 6 jl7 ft. 0 in. ; Pain 8/10; 07:45 Pain 3/10; jl7 09:00 BP 161 / 83; Pulse 67; Resp 17; Pulse Ox 96% ; Pain 3/10; jl7 07:11 Body Mass Index 37.03 (123.83 kg, 182.88 cm) jl7 07:11 Pain Scale: Adult jl7 07:45 Pain Scale: Adult jl7 09:00 Pain Scale: Adult jl7 ED Course: 07:01 Patient arrived in ED. mr 07:03 Dar Francois MD is Attending Physician. bob 07:06 Livia Fodr, NEAL is Primary Nurse. jl7 07:13 Triage completed. jl7 07:15 Arm band placed on right wrist. jl7 07:15 Patient has correct armband on for positive identification. Provided Education on: use jl7 of call gauthier. 07:15 Initial lab(s) drawn, by me, sent to lab. Urine collected: clean catch specimen, clear. jl7 Inserted saline lock: 20 gauge in right antecubital area, using aseptic technique. Blood collected. Flushed with 10 mL NS. 07:49 CT Stone Protocol In Process Unspecified. EDMS 08:24 Fran Serna MD is Referral Physician. bob 09:05 No provider procedures requiring assistance completed. IV discontinued, intact, jl7 bleeding controlled, No redness/swelling at site. Pressure dressing applied. Administered Medications: 07:17 Drug: Ondansetron IVP 4 mg IVP once; over 2 minutes Route: IVP; Site: right antecubital;ld1 08:59 Follow up: Response: No adverse reaction jl7 07:17 Drug: NS 0.9% IV 1000 ml IV at 1 bolus Per protocol; to be given as a bolus over 60 ld1 minutes Route: IV; Rate: 1 bolus; Site: right antecubital; 08:59 Follow up: Response: No adverse reaction; IV Status: Completed infusion; IV Intake: jl7 1000ml 07:18 Drug: Ketorolac IVP 30 mg IVP once Route: IVP; Site: right antecubital; ld1 07:45 Follow up: Pain 3/10 Adult; Response: No adverse reaction; Pain is decreased; RASS: jl7 Alert and Calm (0) 08:50 Drug: Rocephin IV 1 grams IV at per protocol once; Given slow IV push per pharmacy jl7 instructions Route: IV; Rate: per protocol; Site: right antecubital; 09:00 Follow up: Response: No adverse reaction; IV Status: Completed infusion jl7 09:04 Not Given (Physician Discretion): morphineor iv 4 mg IVP once over 4 mins jl7 09:04 Not Given (Physician Discretion): ns 0.9% 1000 ml IV at 1000 ml once; to be given as a jl7 bolus over 60 minutes Medication: 08:00 VIS not applicable for this client. jl7 Intake: 08:59 IV: 1000ml; Total: 1000ml. jl7 Outcome: 08:24 Discharge ordered by . bob 09:06 Discharged to home ambulatory, jl 09:06 Condition: stable 09:06 Discharge instructions given to patient, Instructed on discharge instructions, follow up and referral plans. medication usage, Demonstrated understanding of instructions, follow-up care, medications, Prescriptions given X 4, 09:06 Patient left the ED. jl7 Signatures: Dispatcher [employer] EDOK Dar Francois MD MD cha Rivera, Mary, Reg Reg Livia Gonzalez RN RN jl7 Johanna Dorman RN RN ld1
--- NOTE | 2024-08-16 08:25 | EDPHYS ---
Physician Documentation [facility] Name: Berto Henley Age: 54 yrs Sex: Male : 1970 Arrival Date: 08/16/2024 Time: 06:59 Bed 8 Private MD: ED Physician Dar Francois HPI: 08/16 08:20 This 54 yrs old Male presents to ER via Ambulatory with complaints of Possible bob Kidney Stone. 08:20 The patient complains of pain in the right mid back and right low back. The pain bob radiates to the right mid back. Onset: The symptoms/episode began/occurred just prior to arrival, this morning. Modifying factors: The symptoms are alleviated by nothing. the symptoms are aggravated by nothing. Associated signs and symptoms: Pertinent positives: nausea. Severity of pain: At its worst the pain was severe in the emergency department the pain has improved moderately. The patient has experienced similar episodes in the past. Historical: - Allergies: 07:13 Dilantin; jl7 - PMHx: 07:13 Hypertension; Kidney stones; prostate issues; Seizures; jl7 - Immunization history:: Adult Immunizations unknown. - Infectious Disease History:: Denies. - Social history:: Smoking status: Patient denies any tobacco usage or history of. ROS: 08:21 Constitutional: Negative for fever, chills, and weight loss, Eyes: Negative for injury, bob pain, redness, and discharge, ENT: Negative for injury, pain, and discharge, Neck: Negative for injury, pain, and swelling, Cardiovascular: Negative for chest pain, palpitations, and edema, Respiratory: Negative for shortness of breath, cough, wheezing, and pleuritic chest pain, Abdomen/GI: Negative for abdominal pain, nausea, vomiting, diarrhea, and constipation, MS/Extremity: Negative for injury and deformity, Skin: Negative for injury, rash, and discoloration, Neuro: Negative for headache, weakness, numbness, tingling, and seizure, Psych: Negative for depression, anxiety, suicide ideation, homicidal ideation, and hallucinations, Allergy/Immunology: Negative for hives, rash, and allergies, Endocrine: Negative for neck swelling, polydipsia, polyuria, polyphagia, and marked weight changes, Hematologic/Lymphatic: Negative for swollen nodes, abnormal bleeding, and unusual bruising, 08:21 Back: Positive for pain with movement, radiated pain, 08:21 : Positive for hematuria, Exam: 08:21 Constitutional: This is a well developed, well nourished patient who is awake, alert, bob and in no acute distress. Head/Face: Normocephalic, atraumatic. Eyes: Pupils equal round and reactive to light, extra-ocular motions intact. Lids and lashes normal. Conjunctiva and sclera are non-icteric and not injected. Cornea within normal limits. Periorbital areas with no swelling, redness, or edema. ENT: Nares patent. No nasal discharge, no septal abnormalities noted. Tympanic membranes are normal and external auditory canals are clear. Oropharynx with no redness, swelling, or masses, exudates, or evidence of obstruction, uvula midline. Mucous membranes moist. Neck: Trachea midline, no thyromegaly or masses palpated, and no cervical lymphadenopathy. Supple, full range of motion without nuchal rigidity, or vertebral point tenderness. No Meningismus. Chest/axilla: Normal chest wall appearance and motion. Nontender with no deformity. No lesions are appreciated. Cardiovascular: Regular rate and rhythm with a normal S1 and S2. No gallops, murmurs, or rubs. Normal PMI, no JVD. No pulse deficits. Respiratory: Lungs have equal breath sounds bilaterally, clear to auscultation and percussion. No rales, rhonchi or wheezes noted. No increased work of breathing, no retractions or nasal flaring. Abdomen/GI: Soft, non-tender, with normal bowel sounds. No distension or tympany. No guarding or rebound. No evidence of tenderness throughout. Male : Normal genitalia with no discharge or lesions. Skin: Warm, dry with normal turgor. Normal color with no rashes, no lesions, and no evidence of cellulitis. MS/ Extremity: Pulses equal, no cyanosis. Neurovascular intact. Full, normal range of motion., bilateral aka Neuro: Awake and alert, GCS 15, oriented to person, place, time, and situation. Cranial nerves II-XII grossly intact. Motor strength 5/5 in all extremities. Sensory grossly intact. Cerebellar exam normal. Normal gait. Psych: Awake, alert, with orientation to person, place and time. Behavior, mood, and affect are within normal limits. 08:21 Back: pain, that is moderate, ROM is normal, normal spinal alignment noted, CVA tenderness, that is mild, is noted on the right, vertebral tenderness, is not appreciated, muscle spasm, is not present, Vital Signs: 07:11 BP 160 / 91; Pulse 77; Resp 15; Temp 98.1; Pulse Ox 96% ; Weight 123.83 kg; Height 6 jl7 ft. 0 in. ; Pain 8/10; 07:45 Pain 3/10; jl7 09:00 BP 161 / 83; Pulse 67; Resp 17; Pulse Ox 96% ; Pain 3/10; jl7 07:11 Body Mass Index 37.03 (123.83 kg, 182.88 cm) jl7 07:11 Pain Scale: Adult jl7 07:45 Pain Scale: Adult jl7 09:00 Pain Scale: Adult jl7 MDM: 07:03 Medical Screening Exam initiated bob 08:22 Differential diagnosis: nephrolithiasis, pyelonephritis, UTI, diverticulitis, bob pancreatitis. Data reviewed: vital signs, nurses notes, lab test result(s), radiologic studies, CT scan. Consideration of Admission/Observation Escalation of care including admission/observation considered. I considered the following discharge prescriptions or medication management in the emergency department Medications were administered in the Emergency Department. See MAR. Independent interpretation of the following test(s) in the Emergency Department CT Scan: My interpretation is ct stone. Test considered but Not performed: Ultrasound no renal usg. Care significantly affected by the following chronic conditions: Hypertension, seizure, kidney stones, seizures. Counseling: I had a detailed discussion with the patient and/or guardian regarding the historical points, exam findings, and any diagnostic results supporting the discharge/admit diagnosis, lab results, radiology results, the need for outpatient follow up, for definitive care, a family practitioner, a urologist. 08/16 07:09 Order name: CBC with Diff [facility] 08/16 07:09 Order name: CMP; Complete Time: 08:18 [facility] 08/16 07:09 Order name: Lipase; Complete Time: 08:18 [facility] 08/16 07:09 Order name: CT Stone Protocol; Complete Time: 08:18 [facility] 08/16 07:09 Order name: IV Saline Lock; Complete Time: 07:18 [facility] 08/16 07:09 Order name: Labs collected and sent; Complete Time: 07:18 [facility] Administered Medications: 07:17 Drug: Ondansetron IVP 4 mg IVP once; over 2 minutes Route: IVP; Site: right antecubital;ld1 08:59 Follow up: Response: No adverse reaction jl7 07:17 Drug: NS 0.9% IV 1000 ml IV at 1 bolus Per protocol; to be given as a bolus over 60 ld1 minutes Route: IV; Rate: 1 bolus; Site: right antecubital; 08:59 Follow up: Response: No adverse reaction; IV Status: Completed infusion; IV Intake: jl7 1000ml 07:18 Drug: Ketorolac IVP 30 mg IVP once Route: IVP; Site: right antecubital; ld1 07:45 Follow up: Pain 3/10 Adult; Response: No adverse reaction; Pain is decreased; RASS: jl7 Alert and Calm (0) 08:50 Drug: Rocephin IV 1 grams IV at per protocol once; Given slow IV push per pharmacy jl7 instructions Route: IV; Rate: per protocol; Site: right antecubital; 09:00 Follow up: Response: No adverse reaction; IV Status: Completed infusion jl7 09:04 Not Given (Physician Discretion): morphineor iv 4 mg IVP once over 4 mins jl7 09:04 Not Given (Physician Discretion): ns 0.9% 1000 ml IV at 1000 ml once; to be given as a jl7 bolus over 60 minutes Disposition Summary: 08/16/24 08:24 Discharge Ordered Notes: Location: Home bob Problem: new bob Symptoms: have improved bob Condition: Stable bob Diagnosis - Hydronephrosis with renal and ureteral calculous obstruction - 5 mm distal right bob Followup: bob - With: Private Physician - When: 2 - 3 days - Reason: Recheck today's complaints, Continuance of care, Re-evaluation by your physician Followup: bob - With: Fran Serna MD - When: 2 - 3 days - Reason: Recheck today's complaints, Re-evaluation by your physician Discharge Instructions: - Discharge Summary Sheet bob - Kidney Stones bob - Kidney Stones, [id number] bob - Hydronephrosis bob - Dietary Guidelines to Help Prevent Kidney Stones bob Forms: - Medication Reconciliation Form bob - Antibiotic Education bob - Prescription Opioid Use bob - Patient Portal Instructions bob - Leadership Thank You Letter bob - Work release form eb Prescriptions: - Flomax 0.4 mg Oral capsule - take 1 capsule ORAL route once; 30 capsule; Refills: 0, Product Selection [facility] Permitted - ketorolac 10 mg Oral tablet - take 1 tablet ORAL route every 6-8 hours for 3 days; 15 tablet; Refills: 0, [facility] Product Selection Permitted - ondansetron 4 mg Oral Tablet,disintegrating - take 1 tablet ORAL route every 6-8 hours for 5 days; 24 tablet; Refills: 0, [facility] Product Selection Permitted - Cipro 500 mg Oral Tablet - take 1 tablet ORAL route every 12 hours for 7 days; 14 tablet; Refills: 0, [facility] Product Selection Permitted Signatures: Dispatcher [employer] EDMS Dar Francois MD MD cha Leal, Jahala RN RN jl7 Johanna Dorman RN RN ld1 Corrections: (The following items were deleted from the chart) 07:09 07:09 CBC+H.LAB.BRZ ordered. EDMS EDMS 07:09 07:09 COMPREHENSIVE METABOLIC PANEL+C.LAB.BRZ ordered. EDMS EDMS 07:09 07:09 LIPASE+C.LAB.BRZ ordered. EDMS EDMS 07:09 07:09 Urinalysis+U.LAB.BRZ ordered. EDMS EDMS
[2024-08-16] MEDS ORDERED: CEFTRIAXONE 1000 MG/VIAL ONE (08:43)
[2024-08-16] MEDS ORDERED: NA CHLORIDE 0.9% 0 ML ONE (08:44)
[2024-08-16 09:11] VITALS: BP 160/91; TEMP 98.1; O2SAT 96
[2024-08-16 10:33] LABS: Blood Morphology Comment NOT SEEN (NOT SEEN); Platelet Estimate ADEQ; White Blood Cell Scan OK (OK)
== END 2024-08-16 09:06 | disposition home or self-care (01) ==
LOC: ER 06:59
DX: N13.2 Hydronephrosis with renal and ureteral calculous obstruction (principal); Z87.442 Personal history of urinary calculi
CPT/HCPCS: 96361; 85025; 36415; 83690; 80053; 76377; 74176; 96375; 96374; 99284; J2405; J7030; J0696